=== PATIENT | female | born 1985 | race Caucasian/White ===

== ENCOUNTER 2020-01-22 20:37 | Emergency (ER) | payer BC ==
[2020-01-22 22:14] LABS: Absolute Lymphocytes (CBC) 2.3 K/uL (0.7-4.9); Basophils % 1.2 % (0-1.3); Hematocrit 42.1 % (36.0-45.0); Lymphocytes % 39.2 % (15.3-44.8); MPV 8.7 fL (7.6-11.3)
[2020-01-22] MEDS ORDERED: CLINDAMYCIN 600MG/D5W 600 MG/50 ML BAG IV ONE (22:19)
[2020-01-22 22:24] LABS: Potassium 3.9 mmol/L (3.5-5.1)
--- NOTE | 2020-01-22 22:57 | ER ---
Nurse's Notes [facility] Name: Radha Hoover Age: 34 yrs Sex: Female : 1985 Arrival Date: 01/22/2020 Time: 20:43 Bed 15 Private MD: Diagnosis: Other local infections of skin and subcutaneous tissue Presentation: 01/21 20:46 Chief complaint: Patient states: Sores to hands and legs for 1 week. Went to [address], given Bactrim and hydrocortisone, not getting better yet. Coronavirus screen: Proceed with normal triage. Patient denies a cough. Patient denies shortness of breath or difficulty breathing. Patient denies measured and/or subjective temperature greater than 100.4F prior to today's visit. Patient denies travel on a cruise ship or to a country the [facility] currently lists as an affected area. Patient denies contact with known and/or suspected case of COVID-19. Ebola Screen: Patient denies travel to an Ebola-affected area in the 21 days before illness onset. Initial Sepsis Screen: Does the patient meet any 2 criteria? HR > 90 bpm. No. Patient's initial sepsis screen is negative. Does the patient have a suspected source of infection? No. Patient's initial sepsis screen is negative. Risk Assessment: Do you want to hurt yourself or someone else? Patient reports no desire to harm self or others. Onset of symptoms was January 15, 2020. 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 - Social history:: Smoking status: Patient reports the use of cigarette tobacco products, smokes one-half pack cigarettes per day, Patient/guardian denies using alcohol, street drugs. Screenin:35 Abuse screen: Denies threats or abuse. Nutritional screening: No deficits noted. [facility] Tuberculosis screening: No symptoms or risk factors identified. Fall Risk None identified. IV access (20 points). Total [place] Fall Scale indicates No Risk (0-24 pts). Assessment: 21:00 General: Appears in no apparent distress. Behavior is calm, cooperative. Pain: ah Complains of pain in BLE. Neuro: Level of Consciousness is awake, alert, Oriented to person, place, time, situation. Cardiovascular: Heart tones S1 S2 present Capillary refill < 3 seconds Patient's skin is warm and dry. Respiratory: Airway is patent Respiratory effort is even, unlabored, Respiratory pattern is regular, symmetrical. GI: No signs and/or symptoms were reported involving the gastrointestinal system. : No signs and/or symptoms were reported regarding the genitourinary system. EENT: No signs and/or symptoms were reported regarding the EENT system. Derm: Wound noted BLE Multiple sores to BLE and feet, Pt states not reacting to current treatment. She feels that they are spreading. Redness noted around sores. She states that they have been there several days. Musculoskeletal: No signs and/or symptoms reported regarding the musculoskeletal system. 22:00 Reassessment: No changes from previously documented assessment. Patient and/or family ll1 updated on plan of care and expected duration. Pain level reassessed. Patient is alert, oriented x 3, equal unlabored respirations, skin warm/dry/pink. 23:00 Reassessment: No changes from previously documented assessment. Patient and/or family ll1 updated on plan of care and expected duration. Pain level reassessed. Patient is alert, oriented x 3, equal unlabored respirations, skin warm/dry/pink. Vital Signs: 20:46 BP 130 / 78; Pulse 99; Resp 17; Pulse Ox 100% ; Weight 58.97 kg; Height 5 ft. 4 in. ll1 (162.56 cm); Pain 6/10; 23:37 BP 106 / 81; Pulse 93; Resp 16; Temp 97.9; Pulse Ox 100% ; Pain 4/10; ll1 20:46 Body Mass Index 22.31 (58.97 kg, 162.56 cm) ll1 ED Course: 20:43 Patient arrived in ED. cf2 20:48 Triage completed. ll1 20:49 Arm band placed on Patient placed in an exam room, on a stretcher. ll1 20:55 Vika Hensley, RN is Primary Nurse. 20:57 Parish Jackson PA is PHCP. cp 20:57 Theron Melchor MD is Attending Physician. cp 21:40 Urine collected: clean catch specimen, clear, celina colored. jp3 21:50 Inserted saline lock: 20 gauge in right antecubital area, using aseptic technique. jp3 Blood collected. Patient maintains SpO2 saturation greater than 95% on room air. 21:50 Initial lab(s) drawn, by me, sent to lab. First set of blood cultures drawn by me. jp3 22:03 Second set of blood cultures drawn by me. jp3 23:36 Patient has correct armband on for positive identification. Bed in low position. Call ll1 light in reach. Side rails up X 1. 23:36 No provider procedures requiring assistance completed. IV discontinued, intact, ll1 bleeding controlled, No redness/swelling at site. Pressure dressing applied. Administered Medications: 21:27 Not Given (Patient Refused; Pt states she has to drive and does not want to be sleepy): ah Benadryl 25 mg IVP once 22:22 Drug: Clindamycin 600 mg Route: IVPB; Infused Over: 30 mins; Site: right antecubital; ll1 23:00 Follow up: Response: No adverse reaction; IV Status: Completed infusion; IV Intake: [id number] 23:16 Drug: SOLU-Medrol 60 mg Route: IVP; Site: right antecubital; ll1 23:37 Follow up: Response: No adverse reaction; RASS: Alert and Calm (0) ll1 Intake: 23:00 IV: 50ml; Total: 50ml. ll1 Outcome: 22:56 Discharge ordered by MD. cp 23:23 Patient left the ED. ll1 23:36 Discharged to home ambulatory. ll1 23:36 Condition: stable 23:36 Discharge instructions given to patient, Instructed on discharge instructions, follow up and referral plans. medication usage, wound care, Demonstrated understanding of instructions, follow-up care, medications, wound care, Prescriptions given X 3. Signatures: Parish Jackson PA PA cp Pisarski, Jacob jp3 Dilshad Adler cf2 Vika Hensley, DAVE RN Emery Reynolds RN RN ll1
--- NOTE | 2020-01-22 22:57 | EDPHYS ---
Physician Documentation [facility] Name: Radha Hoover Age: 34 yrs Sex: Female : 1985 Arrival Date: 01/22/2020 Time: 20:43 Bed 15 Private MD: ED Physician Theron Melchor HPI: 01/21 21:25 This 34 yrs old Female presents to ER via Ambulatory with complaints of Leg cp Pain, Hand Pain, Skin Sore(s). 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 - Social history:: Smoking status: Patient reports the use of cigarette tobacco products, smokes one-half pack cigarettes per day, Patient/guardian denies using alcohol, street drugs. ROS: 21:30 Constitutional: Negative for body aches, chills, fever, poor PO intake. cp 21:30 Eyes: Negative for injury, pain, redness, and discharge. cp Exam: 21:35 Constitutional: The patient appears in no acute distress, alert, awake, non-toxic, well cp developed, well nourished. 21:35 Head/Face: Normocephalic, atraumatic. cp Vital Signs: 20:46 BP 130 / 78; Pulse 99; Resp 17; Pulse Ox 100% ; Weight 58.97 kg; Height 5 ft. 4 in. ll1 (162.56 cm); Pain 6/10; 23:37 BP 106 / 81; Pulse 93; Resp 16; Temp 97.9; Pulse Ox 100% ; Pain 4/10; ll1 20:46 Body Mass Index 22.31 (58.97 kg, 162.56 cm) ll1 MDM: 21:03 Patient medically screened. cp 22:55 Data reviewed: vital signs, nurses notes, lab test result(s), and as a result, I will cp discharge patient. 22:55 Counseling: I had a detailed discussion with the patient and/or guardian regarding: the cp historical points, exam findings, and any diagnostic results supporting the discharge/admit diagnosis, lab results, the need for outpatient follow up, a family practitioner. Response to treatment: the patient's symptoms have mildly improved after treatment. 01/21 21:45 Order name: Urine Dipstick--Ancillary (enter results) [facility] 01/21 21:45 Order name: Urine --Ancillary (enter results) [facility] 01/21 22:02 Order name: Basic Metabolic Panel; Complete Time: 22:45 EDMS 01/21 22:47 Interpretation: Normal except: GLUC 122; GFR 86. cp 01/21 21:21 Order name: Urine Dipstick-Ancillary (obtain specimen); Complete Time: 21:59 cp 01/21 21:21 Order name: Urine Test (obtain specimen); Complete Time: 21:58 cp 01/21 22:02 Order name: CBC with Automated Diff; Complete Time: 22:45 EDMS 01/21 22:46 Interpretation: Normal except: EOSINOPHIL % 7.4. cp 01/21 22:02 Order name: Blood Culture [facility] 01/21 22:02 Order name: Blood Culture EDDE Administered Medications: 21:27 Not Given (Patient Refused; Pt states she has to drive and does not want to be sleepy): ah Benadryl 25 mg IVP once 22:22 Drug: Clindamycin 600 mg Route: IVPB; Infused Over: 30 mins; Site: right antecubital; ll1 23:00 Follow up: Response: No adverse reaction; IV Status: Completed infusion; IV Intake: [id number] 23:16 Drug: SOLU-Medrol 60 mg Route: IVP; Site: right antecubital; ll1 23:37 Follow up: Response: No adverse reaction; RASS: Alert and Calm (0) ll1 Disposition: 01/22 03:25 Co-signature as Attending Physician, Theron Melchor MD. [email or web address] Disposition: 01/22/20 22:56 Discharged to Home. Impression: Other local infections of skin and subcutaneous tissue. - Condition is Stable. - Discharge Instructions: Staphylococcal Infection. - Prescriptions for Bactroban 2 % Topical Cream - Apply to affected area 1 application by TOPICAL route every 12 hours; 30 gram. Prednisone 20 mg Oral Tablet - take 2 tablet by ORAL route once daily for 5 days; 10 tablet. Clindamycin HCl 300 mg Oral Capsule - take 1 capsule by ORAL route every 6 hours for 10 days; 40 capsule. - Medication Reconciliation Form, Thank You Letter, Antibiotic Education, Prescription Opioid Use form. - Follow up: Private Physician; When: 2 - 3 days; Reason: Recheck today's complaints. - Problem is an ongoing problem. - Symptoms have improved. Signatures: Dispatcher [employer] EDDE Parish Jackson PA PA cp Lewis, Lynsay, RN RN ll1 Theron Melchor MD MD 7 Vika Hensley RN Corrections: (The following items were deleted from the chart) 01/21 23: 22:14 CBC+H.LAB.BRZ ordered. EDDE EDMS 22:14 BASIC METABOLIC PANEL+C.LAB.BRZ ordered. EDDE EDDE 22:14 BLOOD CULTURE*+BA.LAB.BRZ ordered. [facility] EDDE : 22:56 01/22/2020 22:56 Discharged to Home. Impression: Other local infections of skin ll1 and subcutaneous tissue. Condition is Stable. Forms are Medication Reconciliation Form, Thank You Letter, Antibiotic Education, Prescription Opioid Use. Follow up: Private Physician; When: 2 - 3 days; Reason: Recheck today's complaints. Problem is an ongoing problem. Symptoms have improved. cp
[2020-01-22] MEDS ORDERED: METHYLPREDNISOLONE 125 MG INJ ONE (23:05)
[2020-01-22 23:19] LABS: Urine Blood 1+ (NEG); Urine Glucose NEGATIVE (NEG); Urine Protein NEGATIVE (NEG)
[2020-01-22 23:42] VITALS: BP 130/78; O2SAT 100
== END 2020-01-22 23:23 | disposition home or self-care (01) ==
LOC: ER 20:37
DX: L08.9 Local infection of the skin and subcutaneous tissue, unspecified (principal); F17.210 Nicotine dependence, cigarettes, uncomplicated; Z91.048 Other nonmedicinal substance allergy status
CPT/HCPCS: 96365; 87040 ×2; 85025; 80048; 36415; 81025; 81003; 96375; 99284; J2930

== ENCOUNTER 2021-10-19 13:52 | Emergency (ER) | payer BC ==
[2021-10-19 15:12] LABS: Urine Blood 2+ (Negative); Urine Glucose Negative (Negative); Urine Protein Negative (Negative); Urine Specific Gravity >=1.030 (1.005-1.030)
[2021-10-19 15:18] LABS: Absolute Lymphocytes (CBC) 1.7 K/uL (0.7-4.9); Hematocrit 38.3 % (36.0-45.0); Lymphocytes % 31.9 % (15.3-44.8); MPV 8.5 fL (7.6-11.3); RBC Red Blood Cell Count 4.13 M/uL (3.86-4.86)
[2021-10-19 15:18] LABS: Urine Specific Gravity/Preg >1.030 (1.005-1.030)
[2021-10-19 15:30] LABS: ALT/SGPT 22 U/L (12-78); AST/SGOT 11 U/L (15-37); Albumin 3.4 g/dL (3.4-5.0); Alkaline Phosphatase 73 U/L (45-117); BUN Blood Urea Nitrogen 11 mg/dL (7-18); Bicarbonate 27 mmol/L (21-32); Bilirubin Direct < 0.1 mg/dL (0-0.2); Bilirubin Total 0.2 mg/dL (0.2-1.0); Glucose Level 76 mg/dL (74-106); Lipase 84 U/L (73-393); Potassium 3.7 mmol/L (3.5-5.1); Protein, Total 6.9 g/dL (6.4-8.2); Sodium Level 141 mmol/L (136-145)
--- NOTE | 2021-10-19 16:10 | RAD REPORT ---
EXAM DESCRIPTION: CTAbdomen Pelvis W Contrast - 10/19/2021 3:55 pm CLINICAL HISTORY: ABD PAIN COMPARISON: No comparisons TECHNIQUE: CT of the abdomen and pelvis was performed. All CT scans are performed using dose optimization technique as appropriate and may include automated exposure control or mA/KV adjustment according to patient size. FINDINGS: Lower chest: No acute abnormality. Liver: No acute abnormality or suspicious lesions. Biliary: No biliary ductal dilatation. Stomach: No significant focal abnormality. Duodenum: No significant focal abnormality. Pancreas: No significant abnormality. Spleen: No significant abnormality. Adrenal: No suspicious lesions. Kidney/ureter: No hydronephrosis. No renal calculi. Retroperitoneum: No retroperitoneal adenopathy. Vascular: No aneurysm. Bowel: Mild circumferential thickening at the ascending colon and at the hepatic flexure. The colon i s not well distended at this location. Normal appendix . .. Peritoneum: No ascites or free air. Bladder: Grossly unremarkable. Reproductive: 2.7 cm right adnexal cyst. This is likely physiologic. Tubal ligation clips. Bones: No acute fracture. Other: n/a IMPRESSION: Question mild colitis of the ascending colon. No other specific CT findings are present to explain GI bleeding.
--- NOTE | 2021-10-19 16:15 | ER ---
Nurse's Notes [facility] Name: Radha Hoover Age: 36 yrs Sex: Female : 1985 Arrival Date: 10/19/2021 Time: 13:53 Bed 17 Private MD: Diagnosis: Colitis Presentation: 10/19 14:04 Chief complaint: Patient states: states diarrhea x 2 days; states saw 'what looked like vg1 blood in the toilet' and 'when I wiped it looked like a clot on the toilet paper'. Coronavirus screen: Vaccine status: Patient reports receiving the 2nd dose of the covid vaccine. Client denies travel out of the [place] in the last 14 days. Coronavirus screen: Vaccine status: Client denies travel out of the [place] in the last 14 days. Ebola Screen: Patient negative for fever greater than or equal to 101.5 degrees Fahrenheit, and additional compatible Ebola Virus Disease symptoms. Initial Sepsis Screen: Does the patient meet any 2 criteria? No. Patient's initial sepsis screen is negative. Does the patient have a suspected source of infection? No. Patient's initial sepsis screen is negative. Risk Assessment: Do you want to hurt yourself or someone else? Patient reports no desire to harm self or others. Onset of symptoms was October 17, 2021. 14:04 Method Of Arrival: Ambulatory [facility] 14:04 Acuity: DAMIR 3 vg1 Triage Assessment: 14:06 General: Appears comfortable, Behavior is calm, cooperative. Pain: Complains of pain in vg1 right lower quadrant and left lower quadrant Pain currently is 5 out of 10 on a pain scale. GI: Reports diarrhea. 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 - Social history:: Smoking status: Patient reports the use of cigarette tobacco products, smokes one-half pack cigarettes per day. Screenin:10 Abuse screen: Denies threats or abuse. Denies injuries from another. Nutritional bp screening: No deficits noted. Tuberculosis screening: No symptoms or risk factors identified. Fall Risk None identified. Assessment: 14:10 General: SEE TRIAGE NOTE. bp 15:27 Reassessment: CT PENDING. bp 16:39 Reassessment: PT D/C HOME AMBULATORY, DX WITH COLITIS. bp Vital Signs: 14:04 BP 124 / 83; Pulse 100; Resp 16; Temp 97.7; Pulse Ox 100% ; Weight 64.41 kg; Height 5 vg1 ft. 3 in. (160.02 cm); Pain 5/10; 15:15 BP 111 / 71; Pulse 86; Resp 16; Pulse Ox 100% ; bp 16:39 BP 123 / 74; Pulse 78; Resp 16; Pulse Ox 99% ; bp 14:04 Body Mass Index 25.15 (64.41 kg, 160.02 cm) vg1 ED Course: 13:53 Patient arrived in ED. am2 14:06 Triage completed. vg1 14:06 Arm band placed on. vg1 14:10 Patient has correct armband on for positive identification. Bed in low position. Call bp light in reach. Side rails up X2. 14:16 Kaycee Alas FNP-C is PSYCHIATRICP. kb 14:16 Parish Paz MD is Attending Physician. kb 14:18 Dane Mayes, DAVE is Primary Nurse. bp 15:00 Inserted saline lock: 20 gauge in right antecubital area, using aseptic technique. bp Blood collected. 15:55 CT Abd/Pelvis - IV Contrast Only In Process Unspecified. EDMS 16:39 No provider procedures requiring assistance completed. IV discontinued, intact, bp bleeding controlled, No redness/swelling at site. Pressure dressing applied. Administered Medications: No medications were administered Outcome: 16:14 Discharge ordered by . kb 16:40 Discharged to home ambulatory. bp 16:40 Condition: stable 16:40 Discharge instructions given to patient, Instructed on discharge instructions, follow up and referral plans. no drinking with medication, medication usage, Demonstrated understanding of instructions, follow-up care, medications, Prescriptions given X 2. 16:40 Patient left the ED. bp Signatures: Dispatcher [employer] EDMS Kaycee Alas FNP-C GLYCERINE PLANT OPERATOR-CkAna Laura Long am2 Dane Mayes, RN RN bp Belkys Collier RN RN vg1 Corrections: (The following items were deleted from the chart) 15:40 15:15 Pulse 86bpm; Resp 16bpm; Pulse Ox 100%; bp bp
--- NOTE | 2021-10-19 16:15 | EDPHYS ---
Physician Documentation [facility] Name: Radha Hoover Age: 36 yrs Sex: Female : 1985 Arrival Date: 10/19/2021 Time: 13:53 Bed 17 Private MD: ED Physician Parish Paz HPI: 10/19 15:50 This 36 yrs old Female presents to ER via Ambulatory with complaints of Bloody Stools. kb 15:50 The patient presents to the emergency department with rectal bleeding. Onset: The kb symptoms/episode began/occurred today. Abdominal pain: described as achy. Modifying factors: The symptoms are alleviated by nothing, the symptoms are aggravated by nothing. Associated signs and symptoms: Pertinent positives: diarrhea. Severity of symptoms: At their worst the symptoms were moderate in the emergency department the symptoms are unchanged. The patient has not experienced similar symptoms in the past. The patient has not recently seen a physician. Pt states she has had diarrhea for 2 days. Believes she had blood in her stool today.. 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 - Social history:: Smoking status: Patient reports the use of cigarette tobacco products, smokes one-half pack cigarettes per day. ROS: 15:49 Constitutional: Negative for fever, chills, and weight loss. kb 15:49 Abdomen/GI: Positive for abdominal pain, diarrhea, rectal bleeding, Negative for nausea and vomiting. 15:49 All other systems are negative. Exam: 15:49 Constitutional: This is a well developed, well nourished patient who is awake, alert, kb and in no acute distress. Head/Face: Normocephalic, atraumatic. ENT: Moist Mucous membranes Respiratory: Respirations even and unlabored. No increased work of breathing. Talking in full sentences Abdomen/GI: Soft, non-tender. No distention Skin: Warm, dry with normal turgor. Normal color. MS/ Extremity: Pulses equal, no cyanosis. Neurovascular intact. Full, normal range of motion. Neuro: Awake and alert, GCS 15, oriented to person, place, time, and situation. Moves all extremities. Normal gait. Psych: Awake, alert, with orientation to person, place and time. Behavior, mood, and affect are within normal limits. 15:50 Abdomen/GI: Rectal exam: rectal tone normal, Stool: guaiac negative. kb Vital Signs: 14:04 BP 124 / 83; Pulse 100; Resp 16; Temp 97.7; Pulse Ox 100% ; Weight 64.41 kg; Height 5 vg1 ft. 3 in. (160.02 cm); Pain 5/10; 15:15 BP 111 / 71; Pulse 86; Resp 16; Pulse Ox 100% ; bp 16:39 BP 123 / 74; Pulse 78; Resp 16; Pulse Ox 99% ; bp 14:04 Body Mass Index 25.15 (64.41 kg, 160.02 cm) vg1 MDM: 14:16 Patient medically screened. kb 15:46 Data reviewed: vital signs, nurses notes. Data interpreted: Pulse oximetry: on room air kb is 100 %. Interpretation: normal. 16:13 Counseling: I had a detailed discussion with the patient and/or guardian regarding: the kb historical points, exam findings, and any diagnostic results supporting the discharge/admit diagnosis, lab results, radiology results, the need for outpatient follow up, a family practitioner, to return to the emergency department if symptoms worsen or persist or if there are any questions or concerns that arise at home. 10/19 14:37 Order name: Basic Metabolic Panel; Complete Time: 15:30 kb 10/19 14:37 Order name: CBC with Diff; Complete Time: 15:51 kb 10/19 14:37 Order name: Hepatic Function; Complete Time: 15:30 kb 10/19 14:37 Order name: Lipase; Complete Time: 15:30 kb 10/19 14:37 Order name: COVID-19/FLU A+B (Document "Date of Onset" if Symptomatic) kb 10/19 15:12 Order name: Urine Dipstick-Ancillary; Complete Time: 15:15 EDMS 10/19 14:37 Order name: IV Saline Lock; Complete Time: 15:23 kb 10/19 14:37 Order name: Labs collected and sent; Complete Time: 15:23 kb 02/09 14:37 Order name: CT Abd/Pelvis - IV Contrast Only; Complete Time: 16:13 kb 10/19 14:37 Order name: Urine Dipstick-Ancillary (obtain specimen); Complete Time: 15:23 kb 10/19 15:12 Order name: Urine --Ancillary (enter results); Complete Time: 15:21 bd 10/19 16:16 Order name: Occult Blood--Ancillary bd 10/19 16:16 Order name: Occult Blood--Ancillary EDMS Administered Medications: No medications were administered Disposition: 10/20 07:16 Co-signature as Attending Physician, Parish Paz MD I agree with the assessment and emma plan of care. Disposition Summary: 10/19/21 16:14 Discharge Ordered Location: Home kb Condition: Stable kb Diagnosis - Colitis kb Followup: kb - With: Emergency Department - When: As needed - Reason: Worsening of condition Followup: kb - With: Private Physician - When: 2 - 3 days - Reason: Recheck today's complaints, Continuance of care, Re-evaluation by your physician Discharge Instructions: - Discharge Summary Sheet kb - Colitis kb Forms: - Medication Reconciliation Form kb - Thank You Letter kb - Antibiotic Education kb - Prescription Opioid Use kb - Work release form bd Prescriptions: - Flagyl 500 mg Oral Tablet - take 1 tablet by ORAL route every 8 hours for 10 days; 30 tablet; Refills: 0, kb Product Selection Permitted - Cipro 500 mg Oral Tablet - take 1 tablet by ORAL route every 12 hours for 7 days; 14 tablet; Refills: 0, kb Product Selection Permitted Signatures: Dispatcher [employer] EDKaycee Vegas, MEDICAL SCHEDULER-C MEDICAL SCHEDULER-Parish Dinero MD MD cha Garcia, Victoria, RN RN vg1
[2021-10-19 16:43] LABS: SARS-COV-2 RT PCR NEGATIVE (NEGATIVE)
[2021-10-19 16:58] VITALS: TEMP 97.7
[2021-10-19 17:01] VITALS: BP 123/74; O2SAT 99
== END 2021-10-19 16:40 | disposition home or self-care (01) ==
LOC: ER 13:52
DX: K52.9 Noninfective gastroenteritis and colitis, unspecified (principal); F17.210 Nicotine dependence, cigarettes, uncomplicated; Z91.048 Other nonmedicinal substance allergy status; Z20.822 Contact with and (suspected) exposure to COVID-19
CPT/HCPCS: 85025; 80048; 36415; 81025; 80076; 82272; 81003; 83690; 0240U; 74177; Q9967; 99284